=== PATIENT | female | born 1985 | race Caucasian/White ===

== ENCOUNTER 2019-10-21 11:29 | Emergency (ER) | payer SELFPAY ==
[~2019-10-21] VITALS: Ht 167.6 cm; Wt 71.7 kg
[2019-10-21 11:29] VITALS: BP 131/95
[2019-10-21] MEDS ORDERED: ACETAMINOPHEN ES 500 MG TABLET ONE (12:23)
[2019-10-21] MEDS ORDERED: ACETAMINOPHEN 325 MG TABLET PO ONE (12:30)
--- NOTE | 2019-10-21 12:51 | NUR ---
Patient discharged to home in stable condition. Written and verbal after care instructions given. Patient verbalizes understanding of instruction.
--- NOTE | 2019-10-21 12:51 | NUR ---
SEEN AND EXAMINED BY FATIMAH CUI
== END 2019-10-21 12:52 | disposition home or self-care (01) ==
LOC: ER 11:31
DX: S61.203A Unspecified open wound of left middle finger without damage to nail, initial encounter (principal); F41.9 Anxiety disorder, unspecified; F90.9 Attention-deficit hyperactivity disorder, unspecified type; Z60.2 Problems related to living alone; X58.XXXA Exposure to other specified factors, initial encounter; Y93.89 Activity, other specified; Y92.89 Other specified places as the place of occurrence of the external cause; Y99.8 Other external cause status

== ENCOUNTER 2021-02-28 17:47 | Emergency (ER) | payer OTHER ==
[~2021-02-28] VITALS: Ht 167.6 cm; Wt 70.3 kg
[2021-02-28 17:58] VITALS: BP 138/82
[2021-02-28] MEDS ORDERED: BACI3.5O23 OP (18:12)
--- NOTE | 2021-02-28 18:25 | NUR ---
Patient discharged to home in stable condition. Written and verbal after care instructions given. Patient verbalizes understanding of instruction. Pt ambulatory with a steady gait
== END 2021-02-28 18:27 | disposition home or self-care (01) ==
LOC: ER 17:47
DX: S01.03XA Puncture wound without foreign body of scalp, initial encounter (principal); F90.9 Attention-deficit hyperactivity disorder, unspecified type; F41.9 Anxiety disorder, unspecified; Z60.2 Problems related to living alone; W22.8XXA Striking against or struck by other objects, initial encounter; Y93.89 Activity, other specified; Y92.89 Other specified places as the place of occurrence of the external cause; Y99.8 Other external cause status

== ENCOUNTER 2023-11-30 11:23 | Emergency (ER) | payer BC ==
[~2023-11-30] VITALS: Ht 167.6 cm; Wt 71.7 kg
[~2023-11-30 11:23] MED LIST: BACI3.5O23 OP
[2023-11-30 12:13] VITALS: TEMP 98.1
[2023-11-30 13:21] LABS: BASOPHILS # (AUTO) 0.1 K/uL (0.0-0.2); BASOPHILS % (AUTO) 0.6 % (0.0-2.0); EOSINOPHILS # (AUTO) 0.1 K/uL (0.0-0.7); EOSINOPHILS % (AUTO) 0.9 % (0.0-6.0); HEMATOCRIT 38 % (33-45); HEMOGLOBIN 13.4 g/dL (11.5-14.8); LYMPHOCYTES # (AUTO) 2.4 K/uL (0.8-4.8); LYMPHOCYTES % (AUTO) 26.5 % (20.0-44.0); MEAN CORPUSCULAR HEMOGLOBIN 33 PG (26.0-33.0); MEAN CORPUSCULAR HGB CONC 36 g/dl (31.0-36.0); MEAN CORPUSCULAR VOLUME 93 fL (82-100); MONOCYTES # (AUTO) 0.8 K/uL (0.1-1.30); MONOCYTES % (AUTO) 8.6 % (2.0-12.0); NEUTROPHILS # (AUTO) 5.8 K/uL (1.8-8.9); NEUTROPHILS % (AUTO) 63.4 % (43.0-81.0); PLATELET COUNT (AUTO) 491 K/uL (150-450); RED BLOOD CELL COUNT(AUTO) 4.06 MIL/uL (4.0-5.2); WHITE BLOOD COUNT (AUTO) 9.2 K/uL (4.3-11.0)
[2023-11-30 13:30] LABS: CARBON DIOXIDE 33 mmol/L (21-32); CHLORIDE 103 mmol/L (98-107); CREATININE 0.6 mg/dL (0.6-1.3); GLUCOSE 95 mg/dL (74-106); POTASSIUM 3.8 mmol/L (3.5-5.1); SODIUM SERUM 139 mmol/L (136-145); UREA NITROGEN, BLOOD 9 mg/dL (7-18)
[2023-11-30] MEDS ORDERED: AMOX/CLAVULANATE 875 MG TABLET PO ONE (14:00)
[2023-11-30 14:09] LABS: PREGNANCY TEST URINE QUAL NEGATIVE (NEGATIVE)
[2023-11-30] MEDS ORDERED: AMOX/CLAVULANATE 875 MG TABLET ONE (14:16)
[2023-11-30] MEDS ORDERED: GUAIFENESIN/D-METHORPHAN HB 5 ML UDC ONE (14:20)
[2023-11-30] MEDS ORDERED: KETOROLAC TROMETHAMINE INJ 30 MG/ML VIAL ONE (14:20)
[2023-11-30] MEDS ORDERED: KETOROLAC TROMETHAMINE INJ 30 MG/ML VIAL IM ONE (14:30)
[2023-11-30] MEDS ORDERED: KETOROLAC TROMETHAMINE 15 MG/ML VIAL IV ONE (14:30)
[2023-11-30] MEDS ORDERED: GUAIFENESIN/D-METHORPHAN HB 5 ML UDC PO ONE (14:30)
[2023-11-30] MEDS ORDERED: IV NS 0.9% 500 ML BAG IV ONE (15:00)
[2023-11-30] MEDS ORDERED: GUAI1TBM19 PO (15:21)
[2023-11-30] MEDS ORDERED: AMOX-430 PO (15:21)
[2023-11-30] MEDS ORDERED: P-EP-92 PO (15:21)
[2023-11-30 16:30] VITALS: BP 120/85; O2SAT 98
== END 2023-11-30 16:31 | disposition home or self-care (01) ==
LOC: ER 11:23
DX: R05.9 Cough, unspecified (principal); R09.81 Nasal congestion; F41.9 Anxiety disorder, unspecified; Z60.2 Problems related to living alone; Z20.822 Contact with and (suspected) exposure to COVID-19
CPT/HCPCS: 99285; 96360; 71045; 87426; 93005; 87804 ×2; 85025; 80048; 84703; 36415; 84484; 96372; J1885; J7030; A6403

== ENCOUNTER 2024-12-20 14:47 | Emergency (ER) | payer BC ==
[~2024-12-20] VITALS: Ht 167.6 cm; Wt 61.2 kg
[~2024-12-20 14:47] MED LIST changes: +AMOX-430 PO; +GUAI1TBM19 PO; +P-EP-92 PO
[2024-12-20] MEDS ORDERED: ONDANSETRON HCL/PF 4 MG/2 ML VIAL ONE (15:58)
[2024-12-20] MEDS: IV NS 0.9% 1,000 ML BAG IV ONE (16:05)
[2024-12-20] MEDS: ONDANSETRON HCL/PF 4 MG/2 ML VIAL IVP ONE (16:05)
[2024-12-20 16:10] LABS: BASOPHILS % (AUTO) 0.5 % (0.0-2.0); EOSINOPHILS % (AUTO) 0.8 % (0.0-6.0); HEMATOCRIT 39 % (33-45); HEMOGLOBIN 13.6 g/dL (11.5-14.8); LYMPHOCYTES # (AUTO) 1.8 K/uL (0.8-4.8); LYMPHOCYTES % (AUTO) 33.2 % (20.0-44.0); MEAN CORPUSCULAR HEMOGLOBIN 33 PG (26.0-33.0); MEAN CORPUSCULAR HGB CONC 35 g/dl (31.0-36.0); MEAN CORPUSCULAR VOLUME 94 fL (82-100); MONOCYTES # (AUTO) 0.4 K/uL (0.1-1.30); MONOCYTES % (AUTO) 7.5 % (2.0-12.0); NEUTROPHILS # (AUTO) 3.2 K/uL (1.8-8.9); PLATELET COUNT (AUTO) 335 K/uL (150-450); RED BLOOD CELL COUNT(AUTO) 4.09 MIL/uL (4.0-5.2); RED CELL DISTRIBUTION WIDTH 12.9 % (11.5-15.0); WHITE BLOOD COUNT (AUTO) 5.5 K/uL (4.3-11.0)
[2024-12-20 16:17] LABS: APPEARANCE,URINE CLEAR (CLEAR); BILIRUBIN,URINE NEGATIVE (NEGATIVE); BLOOD, URINE NEGATIVE Ery/uL (NEGATIVE); COLOR,URINE YELLOW (YELLOW); KETONES,URINE NEGATIVE (NEGATIVE); LEUKOCYTE ESTERASE ,URINE NEGATIVE (NEGATIVE); NITRITE, URINE NEGATIVE (NEGATIVE); PH,URINE 6.5 (5.0-8.0); PROTEIN,URINE NEGATIVE (NEGATIVE); UGLUCOSE NEGATIVE (NEGATIVE); UROBILINOGEN,URINE 0.2 EU/dL (0.2)
[2024-12-20 16:17] LABS: CREATININE 0.9 mg/dL (0.6-1.3); POTASSIUM 3.6 mmol/L (3.5-5.1)
[2024-12-20 16:18] LABS: PREGNANCY TEST URINE QUAL NEGATIVE (NEGATIVE)
[2024-12-20 16:21] LABS: ALCOHOL, BLOOD < 3 mg/dL (0-10)
[2024-12-20 16:23] LABS: ACETAMINOPHEN <10 ug/ml (10-30); ALBUMIN 3.7 g/dL (3.4-5.0); BILIRUBIN,DIRECT 0.1 mg/dL (0.0-0.2); BILIRUBIN,TOTAL 0.3 mg/dL (0.2-1.0); SALICYLATE 0.9 mg/dL (2.8-20.0); TOTAL PROTEIN, SERUM 6.3 g/dL (6.4-8.2)
[2024-12-20 18:23] LABS: BARBITURATE, URINE NEGATIVE (NEGATIVE); BENZODIAZEPINE, URINE NEGATIVE (NEGATIVE); CANNABINOID, URINE NEGATIVE (NEGATIVE); COCCAINE, URINE NEGATIVE (NEGATIVE); OPIATE, URINE NEGATIVE (NEGATIVE); PHENCYCLIDINE SCREEN,URINE NEGATIVE (NEGATIVE)
[2024-12-20 18:24] LABS: AMPHETAMINE, URINE POSITIVE (NEGATIVE)
[2024-12-20] MEDS ORDERED: ONDA4TAB5 PO (20:30)
[2024-12-20 21:09] VITALS: BP 121/82; TEMP 98.3; O2SAT 99
== END 2024-12-20 21:09 | disposition home or self-care (01) ==
LOC: ER 14:47
DX: R11.0 Nausea (principal); R42 Dizziness and giddiness; F32.A Depression, unspecified; F41.9 Anxiety disorder, unspecified; F43.9 Reaction to severe stress, unspecified; K59.00 Constipation, unspecified; Z60.2 Problems related to living alone; Z20.822 Contact with and (suspected) exposure to COVID-19
CPT/HCPCS: 99283; 96374; 96361; 85025; 80048; 83690; 80076; 84703; 81003; 36415; 87426; 80143; 80320; 80307; J2405; G0480

== ENCOUNTER 2025-06-08 12:27 | Emergency (ER) | payer BC ==
[~2025-06-08] VITALS: Ht 167.6 cm; Wt 61.7 kg
[~2025-06-08 12:27] MED LIST changes: +ONDA4TAB5 PO
[2025-06-08 13:18] LABS: PLATELET COUNT (AUTO) 287 K/uL (150-450); RED BLOOD CELL COUNT(AUTO) 4.39 MIL/uL (4.0-5.2); RED CELL DISTRIBUTION WIDTH 12.8 % (11.5-15.0); WHITE BLOOD COUNT (AUTO) 4.2 K/uL (4.3-11.0)
[2025-06-08 13:29] LABS: CALCIUM, SERUM 8.8 mg/dL (8.5-10.1); CREATININE 0.7 mg/dL (0.6-1.3); SODIUM SERUM 141.0 mmol/L (136-145); UREA NITROGEN, BLOOD 9.0 mg/dL (7-18)
[2025-06-08 13:34] LABS: ASPARTATE AMINOTRANSFERASE 18.0 U/L (15-37); TOTAL PROTEIN, SERUM 6.7 g/dL (6.4-8.2)
[2025-06-08] MEDS ORDERED: ONDANSETRON HCL/PF 4 MG/2 ML VIAL ONE (13:39)
[2025-06-08] MEDS ORDERED: MORPHINE SULFATE INJ 4 MG/ML DISP.SYRIN ONE (13:39)
[2025-06-08] MEDS: IV NS 0.9% 1,000 ML BAG IV ONE (13:48)
[2025-06-08] MEDS: ONDANSETRON HCL/PF 4 MG/2 ML VIAL IVP ONE (13:49)
[2025-06-08] MEDS: MORPHINE SULFATE INJ 2 MG/ML DISP.SYRIN IV ONE (13:52)
[2025-06-08] MEDS ORDERED: FAMO20TA80 PO (14:37)
[2025-06-08] MEDS ORDERED: SUCR1TAB31 PO (14:37)
[2025-06-08] MEDS ORDERED: ONDA4TAB5 PO (14:37)
[2025-06-08] MEDS ORDERED: PANT40TA49 PO (14:37)
[2025-06-08] MEDS ORDERED: PANTOPRAZOLE 40 MG VIAL ONE (15:14)
[2025-06-08] MEDS ORDERED: FAMOTIDINE/PF INJ 20 MG/2 ML VIAL IV ONE (15:15)
[2025-06-08] MEDS: FAMOTIDINE/PF INJ 20 MG/2 ML VIAL IV ONE (15:16)
[2025-06-08] MEDS: PANTOPRAZOLE 40 MG VIAL IV ONE (15:19)
[2025-06-08] MEDS: SUCRALFATE 1 G TABLET PO ONE (15:24)
[2025-06-08] MEDS ORDERED: oxyCODONE/APAP (5/325 MG) 1 UDTAB TABLET ONE (15:57)
[2025-06-08] MEDS: oxyCODONE/APAP (5/325 MG) 1 UDTAB TABLET PO ONE (15:59)
[2025-06-08 16:24] VITALS: BP 114/81; TEMP 98.2; O2SAT 100
== END 2025-06-08 16:31 | disposition home or self-care (01) ==
LOC: ER 12:31
DX: R10.13 Epigastric pain (principal); R11.0 Nausea; F41.9 Anxiety disorder, unspecified; F32.A Depression, unspecified; F90.9 Attention-deficit hyperactivity disorder, unspecified type; Z90.49 Acquired absence of other specified parts of digestive tract; Z60.2 Problems related to living alone; Z79.899 Other long term (current) drug therapy
CPT/HCPCS: 99285; 74176; 96374; 96375; 96361; 85025; 80048; 83690; 80076; 84703; 36415; J2270; J1308; J2405; J7030; J2470

== ENCOUNTER 2025-06-14 10:15 | Emergency (ER) | payer BC ==
[~2025-06-14] VITALS: Ht 167.6 cm; Wt 64.9 kg
[~2025-06-14 10:15] MED LIST changes: +FAMO20TA80 PO; +PANT40TA49 PO; +SUCR1TAB31 PO
[2025-06-14] MEDS ORDERED: POLY17PO4 PO (10:31)
[2025-06-14 10:40] VITALS: BP 131/95; TEMP 98; O2SAT 98
== END 2025-06-14 10:41 | disposition home or self-care (01) ==
LOC: ER 10:26
DX: K56.41 Fecal impaction (principal); F32.A Depression, unspecified; F41.9 Anxiety disorder, unspecified; F90.9 Attention-deficit hyperactivity disorder, unspecified type; Z79.899 Other long term (current) drug therapy; Z60.2 Problems related to living alone

== ENCOUNTER 2025-07-25 14:04 | Emergency (ER) | payer BC ==
[~2025-07-25] VITALS: Ht 167.6 cm; Wt 61.2 kg
[~2025-07-25 14:04] MED LIST changes: +POLY17PO4 PO
[2025-07-25 14:44] LABS: PLATELET COUNT (AUTO) 273 K/uL (150-450); RED BLOOD CELL COUNT(AUTO) 4.55 MIL/uL (4.0-5.2); RED CELL DISTRIBUTION WIDTH 12.6 % (11.5-15.0); WHITE BLOOD COUNT (AUTO) 4.0 K/uL (4.3-11.0)
[2025-07-25 14:56] LABS: CALCIUM, SERUM 9.0 mg/dL (8.5-10.1); CREATININE 0.9 mg/dL (0.6-1.3); SODIUM SERUM 140.0 mmol/L (136-145); UREA NITROGEN, BLOOD 14.0 mg/dL (7-18)
[2025-07-25 15:00] LABS: INR 0.97 (0.91-1.10)
[2025-07-25 15:02] LABS: ASPARTATE AMINOTRANSFERASE 14.0 U/L (15-37); TOTAL PROTEIN, SERUM 6.8 g/dL (6.4-8.2)
[2025-07-25 15:10] LABS: NT-PRO BNP 57 pg/mL (0-125); PREGNANCY TEST SERUM QUAN 0 mIU/mL (0-6)
[2025-07-25] MEDS ORDERED: dexaMETHasone SOD PHOSPHATE 1 ML ONE (15:30)
[2025-07-25] MEDS ORDERED: PROCHLORPERAZINE EDISYLATE 10 MG/2 ML VIAL ONE (15:31)
[2025-07-25] MEDS ORDERED: KETOROLAC TROMETHAMINE INJ 30 MG/ML VIAL ONE (15:31)
[2025-07-25] MEDS: IV NS 0.9% 1,000 ML BAG IV ONE (15:48)
[2025-07-25] MEDS: dexaMETHasone SOD PHOSPHATE 10 MG/ML VIAL IV ONE (15:48)
[2025-07-25] MEDS: PROCHLORPERAZINE EDISYLATE 10 MG/2 ML VIAL IVP ONE (15:49)
[2025-07-25] MEDS: KETOROLAC TROMETHAMINE INJ 30 MG/ML VIAL IV ONE (15:49)
[2025-07-25] MEDS ORDERED: KETO10TA2 PO (17:08)
[2025-07-25] MEDS ORDERED: PROC10TA29 PO (17:08)
[2025-07-25 17:44] VITALS: BP 110/71; TEMP 97.9; O2SAT 99
== END 2025-07-25 17:45 | disposition home or self-care (01) ==
LOC: ER 14:04
DX: R55 Syncope and collapse (principal); R11.10 Vomiting, unspecified; R51.9 Headache, unspecified; R10.2 Pelvic and perineal pain; R06.02 Shortness of breath; E86.0 Dehydration; Z88.7 Allergy status to serum and vaccine; Z87.19 Personal history of other diseases of the digestive system; Z79.899 Other long term (current) drug therapy; Z20.822 Contact with and (suspected) exposure to COVID-19
CPT/HCPCS: 99285; 96374; 70450; 96361; 71045; 96375 ×2; 87426; 93005; 85025; 80048; 80076; 84703; 36415; 84484; 85730; 86850; 83880; 84702; J1885; J0780; J1100; J7030